=== PATIENT | male | born 1990 | race Caucasian/White ===

== ENCOUNTER 2024-08-07 16:12 | Emergency (ER) | payer MEDICAID, OTHER, SELFPAY ==
[2024-08-07 16:22] VITALS: TEMP 97.7
--- NOTE | 2024-08-07 16:32 | ERPHSYRPT ---
- History of Present Illness Time Seen by Provider: 08/07/24 16:29 Source: patient Exam Limitations: no limitations Patient Subjective Stated Complaint: C/O left foot injury. Patient states he injured his left foot while at a trampoline park yesterday. Indicates "I must stone ve landed wrong." Triage Nursing Assessment: Patient brought back to ER in a W/C. He is alert and oriented. Left foot is swollen and bruised. Patient unable to bear weight on left foot at this time. Physician History: C/O left foot injury. Patient states he injured his left foot while at a trampoline park yesterday. Indicates "I must have landed wrong." Left foot is swollen and bruised. Patient unable to bear weight on left foot at this time. Method of Injury: sports injury Occurred: yesterday Quality: constant Severity of Pain-Max: moderate Severity of Pain-Current: moderate Lower Extremities Pain: foot: left Associated Symptoms: unable to bear weight Body Map: 1 - swollen Allergies/Adverse Reactions: No Known Drug Allergies Allergy (Verified 08/07/24 16:15) Hx Tetanus, Diphtheria Vaccination/Date Given: Yes Hx Influenza Vaccination/Date Given: Yes Hx Pneumococcal Vaccination/Date Given: No Immunizations Up to Date: Yes Travel Risk - International Travel Have you traveled outside of the country in past 3 weeks: No - Emerging Infectious Disease Are you exhibiting symptoms associated with any current EIDs: No - Review of Systems Constitutional: No Fever, No Chills Eyes: No Symptoms Ears, Nose, & Throat: No Symptoms Respiratory: No Symptoms, No Cough, No Dyspnea Cardiac: No Symptoms, No Chest Pain, No Edema, No Syncope Abdominal/Gastrointestinal: No Symptoms, No Abdominal Pain, No Nausea, No Vomiting, No Diarrhea Genitourinary Symptoms: No Symptoms, No Dysuria Musculoskeletal: Fall, Joint Redness, Joint Pain, Joint Swelling, No Back Pain, No Neck Pain, No Deformity Skin: No Symptoms, No Rash Neurological: No Dizziness, No Focal Weakness, No Sensory Changes Psychological: No Symptoms Endocrine: No Symptoms All Other Systems: Reviewed and Negative - Past Medical History Pertinent Past Medical History: No Neurological History: No Pertinent History ENT History: No Pertinent History Cardiac History: No Pertinent History Respiratory History: No Pertinent History Endocrine Medical History: No Pertinent History Musculoskeletal History: No Pertinent History GI Medical History: No Pertinent History History: Other Other Medical History: kidney stones - Past Surgical History Past Surgical History: No - Social History Smoking Status: Current every day smoker How long have you smoked: 18 y.o. Exposure to second hand smoke: No Drug Use: none Patient Lives Alone: No - Social Determinants of Health Will the patient participate in the screening: Yes Do you worry about a steady place to live?: No Do you have any problems with any of the following?: No known problems In the past 12 months,have you had to go without utilities?: No Transportation Issues: No Has anyone in your support network made you feel unsafe?: No Have you or anyone in your house had to go without enough: No - Nursing Vital Signs Nursing Vital Signs: Initial Vital Signs Temperature 97.7 F 08/07/24 16:12 Pulse Rate 98 H 08/07/24 16:12 Respiratory Rate 17 08/07/24 16:12 Blood Pressure 177/116 08/07/24 16:12 O2 Sat by Pulse Oximetry 100 08/07/24 16:12 Pain Scale Pain Intensity 8 - Physical Exam General Appearance: no apparent distress Eyes, Ears, Nose, Throat Exam: normal ENT inspection Neck Exam: normal inspection Cardiovascular/Respiratory Exam: chest non-tender Gastrointestinal/Abdominal Exam: non-tender Back Exam: normal inspection Hips Exam: bilateral: non-tender Legs Exam: bilateral leg: non-tender Knees Exam: bilateral knee: non-tender Ankle Exam: left ankle: bone tenderness, ecchymosis, limited range of motion, soft tissue tenderness, swelling SpO2: 100 Procedures - Splinting Time of Procedure: 16:45 Location of Splint: Left, Foot Type of Splint: Orthoglass Long Leg Splint Splint Applied By: ED Nurse Pre-Proc Neuro Vasc Exam: normal - Course Nursing assessment & vital signs reviewed: Yes - Radiology Exams Ankle X-ray Interpretation: Interpreted by me, Reviewed by me, Displaced Fracture (3rd metatarsal head) Ordered Tests: Active Orders 24 hr Category Date Time Status FOOT (MINIMUM 3 VIEWS) Stat Exams 08/07/24 16:15 Taken - Progress Progress: unchanged, pain not gone completely Counseled pt/family regarding: diagnosis, need for follow-up, rad results Medical Desision Making - Diagnostic Testing Diagnostic test were ordered, analyzed, and reviewed by me: Yes Radiological Interpretation: Interpreted by me, Reviewed by me - Departure Departure Disposition: Home Clinical Impression: Metatarsal fracture Qualifiers: Encounter type: initial encounter Metatarsal bone: third Fracture type: closed Fracture alignment: displaced Laterality: left Qualified Code(s): S92.332A - Displaced fracture of third metatarsal bone, left foot, initial encounter for closed fracture Condition: Stable Critical Care Time: No Referrals: [facility]LOCATION] - [facility]-F [id number] Instructions: Foot Fracture (DC) Additional Instructions: Discharge/Care Plan JOHANA SIMON was seen on 08/07/24 in the Emergency Room. The patient was counseled regarding Diagnosis,Lab results, Imaging studies, need for follow up and when to return to the Emergency Room. Prescriptions given: Discharge Note I have spoken with the patient and/or caregivers. I have explained the patient's condition, diagnosis and treatment plan based on the information available to me at this time. I have answered the patient's and/or caregiver's questions and addressed any concerns. The patient and/or caregivers have as good understanding of the patient's diagnosis, condition and treatment plan as can be expected at this point. The vital signs have been stable. The patient's condition is stable and appropriate for discharge from the emergency department. The patient will pursue further outpatient evaluation with the primary care physician or other designated or consulting physician as outlined in the discharge instructions. The patient and/or caregivers are agreeable to this plan of care and follow-up instructions have been explained in detail. The patient and/or caregivers have received these instruction. The patient/and or caregivers are aware that any significant change in condition or worsening of symptoms should prompt an immediate return to this or the closest emergency department or call 911. JOHANA SIMON was seen on 08/07/24 n the Emergency Room. At that time you were treated for an emergent condition, during your visit Laboratory, Radiology and/or other procedures may have been ordered. It is very important that you follow-up with your Primary Care Physician JADA BAEZ within the next 24- 48 hours to review your Emergency Room visit and the final results of testing that was ordered. Some test results such as Urine Cultures, Blood Cultures, and other cultures if ordered will not be finalized for 24-48 hours. If you do not have a Primary Care Provider please call the medical records department at [phone] ext [phone] to obtain a copy of your results or you may sign into our patient portal to obtain these results by visiting us @ [email or web address] and completing the following steps: 1. Click on the Patient Portal link 2. Click the Patient Self Enrollment Link to complete the enrollment form and entering your 3. Once the enrollment form is completed you will receive an email with a temporary ID and password at the email address you provided. 4. Next choose a user name and password. Your user name must be at least 4 characters long and your password must be at least 4 characters long. 5. Choose a security question from the list and provide your answer to the question. If you already have signed into the Health Portal you may access your Health Care Information 13/04 by the following steps: 1. Login to our website @ [email or web address] 2. Enter your original user name and password. FAQS The [facility] Health Portal is an online tool that contains your Lab Results, Radiology Reports, Visit History, Discharge Instructions and Health Summary Lab and Radiology Results will not be available for 72 hours on the portal. The Portal is a secure site, passwords are encryted and URLs are re-written so they cannot be copied and pasted. You and authorized family members are the only ones who can access your Portal. Also there is a timeout feature that protects your information if you leave the Portal page open. If you have technical difficulty please use the Contact Us link on the page this will allow you to submit any questions you have regarding the Portal or you may contact the Medical Record Department at [phone] ext [phone]. Prescriptions: Ketorolac Trometh 10 mg Tab [TORAdol 10 MG TABLET] 10 mg PO QID #20 tablet
[2024-08-07] MEDS ORDERED: TORAdol 30 mg Injection ONE ×2 (16:42→16:43)
[2024-08-07] MEDS: TORAdol 30 mg Injection IM ONE (16:42)
[2024-08-07 16:50] VITALS: BP 162/105; PULSE 90; RESP 18; O2SAT 98
[2024-08-07] MEDS ORDERED: TORAdol 10 MG TABLET ONE (16:50)
[2024-08-07] MEDS: TORAdol 10 MG TABLET PO PRN (16:53)
--- NOTE | 2024-08-07 18:47 | XRAY ---
Indication: Pain and bruising following injury. Comparison: None 3 nonweightbearing views left foot demonstrates nondisplaced acute comminuted fracture base 2nd and 3rd metatarsals with intra-articular extension. No other bony, articular, or soft tissue abnormalities.
== END 2024-08-07 17:05 | disposition home or self-care (01) ==
LOC: ED 16:12
DX: S92.332A Displaced fracture of third metatarsal bone, left foot, initial encounter for closed fracture (principal); Y93.44 Activity, trampolining
CPT/HCPCS: 29515; 73630; 96372; 99283; J1885; A9270-GY

== ENCOUNTER 2024-08-23 06:52 | Day surgery (SDC) | payer OTHER ==
[2024-08-23] MEDS: celeBREX 100 MG PO ONE (07:10)
[2024-08-23] MEDS: Decadron 4 MG PO ONE (07:10)
[2024-08-23] MEDS: TYLENOL EXTRA STRENGTH 500 MG PO ONE (07:10)
[2024-08-23] MEDS: Pepcid 20 MG VIAL IV ONE (07:10)
[2024-08-23] MEDS: Lactated Ringers 1,000 ML IV SCH (07:11)
[2024-08-23 07:24] LABS: Hematocrit 44.9 % (40.1-51.0); Hemoglobin 15.7 g/dL (13.7-17.5); Mean Cell Volume 93.7 fL (79.0-92.2); Mean Corpuscular Hemoglobin 32.8 pg (25.7-32.2); Mean Platelet Volume 8.9 fL (9.4-12.4); Platelet Count 219 x10^3/uL (163-337); Red Blood Count 4.79 x10^6/uL (4.63-6.08); Red Cell Distribution Width 11.8 % (11.6-14.4); White Blood Count 6.5 x10^3/uL (4.23-9.07)
[2024-08-23] MEDS ORDERED: CEFAZOLIN 2 GM/100 ML NaCl 2 GM/100 ML IVPB IV ONE (07:26)
[2024-08-23] MEDS: CEFAZOLIN 2 GM/100 ML NaCl 2 GM/100 ML IVPB IV SCH (07:26)
[2024-08-23] MEDS ORDERED: NEURONTIN ONE (07:26)
[2024-08-23] MEDS: NEURONTIN PO ONE (07:27)
[2024-08-23 07:37] LABS: ANION GAP 14.8 MEQ/L (5-15); BILIRUBIN,TOTAL 1.1 mg/dL (0.2-1.3); Calcium 10.1 mg/dL (8.4-10.2); Creatinine 1 0.93 mg/dL (0.66-1.25); EST GLOMERULAR FILTRATION RATE 110.5 ML/MIN; Potassium 3.7 mmol/L (3.5-5.1); Total Protein 8.2 g/dL (6.3-8.2)
[2024-08-23] MEDS ORDERED: Marcaine Mpf 0.5% Vial 30 Ml ONE (09:01)
[2024-08-23] MEDS ORDERED: EXPAREL 133 MG/10 ML VIAL IJ ONE (09:01)
[2024-08-23] MEDS ORDERED: SUBLIMAZE 100 MCG/2 ML ONE ×2 (09:03→12:31)
[2024-08-23] MEDS ORDERED: Versed 2 MG/2 ML Injection ONE (09:03)
[2024-08-23] MEDS ORDERED: DIPRIVAN 200 MG/20 ML IV ONE (09:51)
[2024-08-23] MEDS ORDERED: BRIDION 200MG/2ML IV ONE (09:54)
[2024-08-23] MEDS ORDERED: Zofran 4 MG/2 ML VIAL ONE (09:54)
[2024-08-23] MEDS ORDERED: Xylocaine-Mpf 2% 5 Ml Vial ONE (09:54)
[2024-08-23] MEDS ORDERED: ROCURONIUM BROMIDE IV ONE (09:54)
[2024-08-23] MEDS ORDERED: APRESOLINE 20 MG/ML INJ ONE (12:29)
[2024-08-23] MEDS ORDERED: Hydromorphone 1 mg/ml Injection ONE (12:32)
[2024-08-23 13:27] VITALS: RESP 18; TEMP 98.5
[2024-08-23 13:41] VITALS: BP 133/92; PULSE 94; O2SAT 97
--- NOTE | 2024-08-23 20:52 | XRAY ---
Indication: Left foot multiple transverse tarsometatarsal joint arthrodesis. Gastrocnemius resection. Intraoperative fluoroscopy provided for 3 minute 12 seconds. 18 digital spot images submitted for interpretation ultimately demonstrates arthrodesis 3-5 tarsometatarsal articulation with intact fixation plate/screws. Correlate with intraoperative findings/report.
--- NOTE | 2024-08-24 19:22 | XRAY ---
Three minutes and 12 seconds of fluoroscopy was used in surgery for a left foot multiple transverse tarsometatarsal joint arthrodesis. Gastrocnemius resection.
--- NOTE | 2024-08-26 01:34 | OP ---
SURGERY DATE/TIME: 08/23/2024 9538 - [id number] PREOPERATIVE DIAGNOSES: 1) Left gastrocnemius equinus. 2) Lisfranc fracture, dislocation of left foot. POSTOPERATIVE DIAGNOSES: 1) Left gastrocnemius equinus. 2) Lisfranc fracture, dislocation of left foot. PROCEDURES: 1) Gastrocnemius recession left lower extremity. 2) Multiple transverse tarsometatarsal joint arthrodesis left foot. SURGEON: David Sanchez DPM TRICK RODEO RIDER: KENDRA Avila. ANESTHESIA: General plus a preoperative popliteal and saphenous block. See anesthesia report for details. HEMOSTASIS: A thigh tourniquet set to 300 mmHg for a total of 82 total tourniquet minutes. ESTIMATED BLOOD LOSS: Minimal. INJECTABLES: See anesthesia report for details. 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 Patient was jumping on a trampoline at a [employer] and jumped over a child, trying to avoid the child, and landed on his left foot, resulting in a significant amount of pain to the left foot. Patient crawled off of the mat and went to the emergency department and was diagnosed with multiple metatarsal fractures. Patient had clinical indications on presentation to our clinic of the potential Lisfranc ligaments as well as the dorsal mid tarsal ligament being dislocated and failed stress testing. On CT scan that was obtained he had impaction fractures of the plantar aspect of the first tarsometatarsal joint as well as interarticular fractures of the third tarsometatarsal joint. Discussion was held in regards to options for treatment and at this time, patient decided to proceed with surgical intervention. Patient understands all risks, complications and benefits of surgical intervention at this time, including but not limited to infection, hematoma, seroma, possibility of delayed wound healing, non-wound healing and possible need for further surgical intervention at a later date. There is also the possibility of possible irritating hardware and possible need for removal of said hardware. Plenty of time was allowed for the patient to ask questions, which were answered to his apparent satisfaction. It was at this time we decided to proceed. DESCRIPTION OF PROCEDURE AND FINDINGS: Patient was brought into the PACU prior to the procedure and provided a popliteal and saphenous block. See anesthesia report for details. Following this, patient was brought into the operative suite, placed on the operating room table and general anesthesia was administered until the patient was adequately sedated. A well padded thigh tourniquet was applied to the patient's right thigh and set to 300 mmHg in respect to his blood pressure. The right lower extremity was prepped and draped in the typical sterile fashion and lowered onto the surgical field. At this time, at the posteromedial aspect of the calf at the palpable dell of where the gastrocnemius muscle belly and the aponeurosis lies, a linear incision was made approximately 3 cm in length. This was deepened to the crural fascia which was then incised utilizing a 15 blade. Once the aponeurosis was identified, the pediatric speculum was introduced and then rotated 90 degrees, exposing the gastrocnemius aponeurosis. From that standpoint, a 10 blade was then utilized to score the gastroc aponeurosis showing the underlying gastrocnemius muscle belly. The foot was tested and an improvement in the dorsiflexion was appreciated. Following this, copious amounts of sterile saline were utilized to flush the surgical site and 2-0 Vicryl was then utilized to coapt the subcutaneous skin edges and then 3-0 nylon was utilized in a horizontal-mattress type fashion to coapt the skin edges in an everted type fashion. Following this, attention was directed to the dorsal aspect and the dorsomedial aspect of the foot. Under fluoroscopic guidance, incision planning was made. A 4 cm skin bridge was utilized to protect the angiosomes of the foot. A dorsomedial incision was made exposing the first tarsometatarsal joint. The medial capsule was reflected. At this time, the joint was exposed and the impaction fracture was identified at the plantar aspect of the joint. Following this, utilizing rongeur, curette and a Honey Zulay, the cartilage was denuded off of the surface of the bone down to subchondral plate. Copious amounts of sterile saline utilized to flush this site and then a 2-mm drill was utilized to fenestrate and a curved osteotome with mallet was utilized to fish scale. Following this, the dorsal incision was made between the second and third tarsometatarsal joint where a linear incision was carried down, being careful not to damage any neurovascular structures along the way. From that standpoint, any soft tissue that was encountered was retracted carefully laterally or medially and the exposure of the second and third tarsometatarsal joint was appreciated. A 31 mm sagittal saw was utilized to plane the joint evenly. The cartilage was then denuded utilizing a combination of curettes, rongeurs, and Honey Bryson. Once the cartilage was removed, copious amounts of sterile saline was once again utilized to flush the remaining cartilage from deep within the site and then 2-mm drill as well as an osteotome was utilized for fenestration and fish scaling of the site. Following this, a 2 mL syringe filled with StrataGraft Plus was then introduced. Once this was introduced, K-wires were utilized to gain adequate fixation to the second and third tarsometatarsal joint in a distal lateral to proximal medial orientation, gaining excellent compression utilizing a 3.4 x 26 mm VPC screw for each of these sites. Once that was performed, attention was then directed to the first tarsometatarsal joint where a Home Run screw measuring 4.0 x 44 mm was countersunk and then placed in a position for the Home Run screw gaining excellent compression and then a 4-hole MVX plate was then introduced in a dorsomedial orientation gaining compression utilizing a combination of locking and nonlocking screws. Once this was assessed and deemed to be in an adequate position with adequate compression, copious amounts of sterile saline were utilized to flush the surgical sites. Then, 4-0 Monocryl was utilized to coapt the subcutaneous skin edges and then 3-0 nylon was utilized to coapt the skin edges in a horizontal-mattress everted type fashion. Following this, a dressing consisting of Betadine, Adaptic, 4 x 4, Kerlix, ABD and a well padded posterior splint was applied to the patient's left lower extremity with the foot orthogonal relative to longitudinal axis of the leg. The patient was then reversed from anesthesia and returned to the postoperative anesthesia care unit with vital signs stable and vascular status intact. The patient handled the anesthesia as well as the procedure without significant complication. Postoperative orders as indicated in the patient's discharge chart.
== END 2024-08-23 13:51 | disposition home or self-care (01) ==
LOC: SDC 06:52
PROVIDERS: ATTEND Podiatrist Foot & Ankle Surgery
DX: S92.335A Nondisplaced fracture of third metatarsal bone, left foot, initial encounter for closed fracture (principal); M21.6X9 Other acquired deformities of unspecified foot; M79.672 Pain in left foot; M62.462 Contracture of muscle, left lower leg
CPT/HCPCS: 27687; 28730; 36415; 73630; 76000; 76937; 80053; 85027; C1713; C1762; J0360; J0690; J1171; J2250; J2405; J2704; J3010; A9270-GY